=== PATIENT | male | born 1970 | race Caucasian/White ===

== ENCOUNTER 2020-05-06 17:45 | Inpatient (IN) | payer MEDICAID, OTHER ==
[~2020-05-06] VITALS: Ht 172.7 cm; Wt 86.4 kg
[~2020-05-06 17:45] MED LIST: AMLO10TA PO; ASPI-100 PO; ATOR20TA PO; CARV-50 PO; CHLO25TA2 PO; ERGO500014 PO; FAMO20TA8 PO; IBUP-2417 PO; LISI-600 PO; LORA10TA7 PO; NITR0.4T48 SL
[2020-05-06] MEDS ORDERED: LORazepam 2 mg/ml vial ONE (17:49)
[2020-05-06] MEDS ORDERED: heparin 10,000 units/1 ML INJ IV ONE ×2 (17:55→18:05)
[2020-05-06] MEDS ORDERED: heparin 25,000 UNIT/250ml bag 250 ML IV SCH ×2 (18:06→20:39)
[2020-05-06] MEDS ORDERED: LORazepam 2 mg/ml vial IV ONE (18:10)
[2020-05-06] MEDS ORDERED: morphine 4 MG/ML inj SYRINge IV ONE (18:10)
--- NOTE | 2020-05-06 18:11 | NUR ---
PT REPEAT EKG DONE READ BY DR AHUJA PER PROVIDER HE IS GOING TO ORDER METOPROL 5 MG IV ONCE.NOTIFIED PRIMARY NURSE YEYO LIMA.
[2020-05-06 18:14] LABS: D-DIMER 0.67 MG/L FEU (0-0.50); PARTIAL THROMBOPLASTIN TIME 27 SECONDS (22-32)
[2020-05-06] MEDS ORDERED: metoprolol tartrate 1mg/ml inj IV ONE ×2 (18:15)
[2020-05-06 18:17] LABS: ALANINE AMINOTRANSFERASE 47 U/L (12-78); ALBUMIN 4.3 G/DL (3.4-5.0); ALBUMIN/GLOBULIN RATIO 0.9 (1.1-1.5); ALKALINE PHOSPHATASE 137 IU/L (46-116); ASPARTATE AMINO TRANSFERASE 110 U/L (10-37); BILIRUBIN,TOTAL 2.7 MG/DL (0.1-1.0); BLOOD UREA NITROGEN 20 MG/DL (7-18); BUN/CREATININE RATIO 5.6 (5.4-32.0); CALCIUM 10.2 MG/DL (8.5-10.1); CHLORIDE 104 MMOL/L (99-107); CREATININE 3.54 MG/DL (0.60-1.10); ETHANOL < 0.010 GM/DL (0.0-0.010); GLUCOSE 157 MG/DL (70-104); MAGNESIUM 1.4 MG/DL (1.5-2.4); TOTAL CARBON DIOXIDE 17.9 MMOL/L (24-32); eGFR 18 ML/MIN
[2020-05-06] MEDS: heparin 25,000 UNIT/250ml bag 250 ML IV SCH (18:17)
[2020-05-06] MEDS ORDERED: metoprolol tartrate 1mg/ml inj IV SCH (18:25)
[2020-05-06 18:38] LABS: ANION GAP 23 (8-16); SODIUM 145 MMOL/L (135-145)
[2020-05-06 18:40] LABS: POTASSIUM 2.6 MMOL/L (3.5-5.1)
[2020-05-06 18:46] LABS: PLATELET COUNT 154 X10'3 (140-440)
[2020-05-06] MEDS ORDERED: normal saline 1000ML IV soln IVB ONE (18:50)
[2020-05-06 18:54] LABS: BASOPHILS # (AUTO) 0.1 X10'3 (0-0.2); BASOPHILS % (AUTO) 0.9 % (0-1); EOSINOPHILS % (AUTO) 0 % (0-6); HEMATOCRIT 55.4 % (42.0-52.0); LYMPHOCYTES # (AUTO) 1.1 X10'3 (1.1-4.8); LYMPHOCYTES % (AUTO) 11.1 % (21-51); MEAN CORPUSCULAR HEMOGLOBIN 36.8 PG (27.0-31.0); MEAN CORPUSCULAR HGB CONC 35.1 g/dL (33.0-36.5); MEAN CORPUSCULAR VOLUME 104.9 FL (78-98); MONOCYTES % (AUTO) 9.7 % (2-12); NEUTROPHILS % (AUTO) 78.3 % (42-75); RED BLOOD COUNT 5.28 X10'6 (4.70-6.10); RED CELL DISTRIBUTION WIDTH 14.1 % (11.5-14.5); WHITE BLOOD COUNT 10.3 X10'3 (4.5-11.0)
[2020-05-06 19:00] LABS: HEMOGLOBIN 19.4 g/dl (14.0-17.9)
[2020-05-06] MEDS ORDERED: potassium Cl 10 mEq/100mL bag IV ONE (19:10)
[2020-05-06] MEDS ORDERED: atorvastatin 20mg tablet PO STA (19:15)
[2020-05-06] MEDS ORDERED: magnesium 2GM in 50ml NS 50 ML IV ONE (19:20)
[2020-05-06] MEDS ORDERED: magnesium 4gm in 100ml NS 100 ML IV PRN (20:40)
[2020-05-06] MEDS ORDERED: potassium Cl 20 mEq SR tablet PO PRN (20:40)
[2020-05-06] MEDS ORDERED: thiamine inj. 100 MG in normal saline 100ml IV soln 100 ML IV ONE (20:40)
[2020-05-06] MEDS ORDERED: mag hydrox/Alum hydrox/simeth 30ml oral suspension PO PRN ×2 (20:40)
[2020-05-06] MEDS ORDERED: magnesium 2GM in 50ml NS 50 ML IV PRN (20:40)
[2020-05-06] MEDS ORDERED: magnesium hydroxide 30ml (MOM) UD suspension PO PRN (20:40)
[2020-05-06] MEDS ORDERED: ondansetron/PF 4mg/2ml inj IV PRN (20:40)
[2020-05-06] MEDS ORDERED: magnesium Cl slow-release 64mg tablet PO PRN (20:40)
[2020-05-06] MEDS ORDERED: haloperidol 5mg tablet PO PRN (20:40)
[2020-05-06] MEDS ORDERED: acetaminophen 325mg tablet PO PRN (20:40)
[2020-05-06] MEDS ORDERED: bisacodyl 10mg suppository rectal RC PRN (20:40)
[2020-05-06] MEDS ORDERED: morphine 2 MG/ML inj. syringe IV PRN (20:40)
[2020-05-06] MEDS ORDERED: haloperidol lactate 5mg/ml inj IM PRN (20:40)
[2020-05-06] MEDS ORDERED: HYDROcodone/acetaminophen 5mg/325mg tablet PO PRN (20:40)
[2020-05-06] MEDS ORDERED: potassium CL 10mEq/100ml bag 100 ML IV PRN (20:40)
[2020-05-06] MEDS ORDERED: heparin 10,000 units/1 ML INJ IV PRN (20:40)
[2020-05-06] MEDS ORDERED: pantoprazole 40 MG vial IV ONE (20:40)
[2020-05-06] MEDS ORDERED: dextrose ORAL solution 15 GM/59 ML bottle PO PRN ×2 (20:50)
[2020-05-06] MEDS ORDERED: insulin Lispro (HumaLOG) vial - multi-dose SQ SCH (20:50)
[2020-05-06] MEDS ORDERED: MESSAGE TO PHARMACY PO ONE (20:50)
[2020-05-06] MEDS ORDERED: dextrose 50%-water 50ml dispensing syringe IV PRN ×2 (20:50)
[2020-05-06] MEDS ORDERED: glucagon, human recombinant 1mg kit SUBCUT PRN (20:50)
[2020-05-06] MEDS ORDERED: nitroGLYCERIN 0.4mg SUBLingual tab SL PRN (21:10)
--- NOTE | 2020-05-06 21:28 | NUR ---
Patient in ER. I have received report from Cap RN and had the opportunity to ask questions.
[2020-05-06 21:44] LABS: URINE AMPHETAMINE SCREEN POSITIVE (Neg); URINE BARBITUATE SCREEN NEGATIVE (Neg); URINE BENZODIAZEPINES SCREEN NEGATIVE (Neg); URINE CANNABINOID SCREEN NEGATIVE (Neg); URINE COCAINE SCREEN NEGATIVE (Neg); URINE METHADONE SCREEN NEGATIVE (Neg); URINE OPIATE SCREEN POSITIVE (Neg); URINE PHENCYCLIDINE SCREEN NEGATIVE (Neg)
--- NOTE | 2020-05-06 21:45 | NUR ---
Patient arrived to unit. Transferred via gurney. Patient verbally aggressive with staff. MRSA sample collected. Vital signs Temp 98.6, RR 16, 158/102, HR 93, Pain 0 O2 98.
[2020-05-06 22:00] VITALS: BP 158/102
[2020-05-06] MEDS ORDERED: folic acid inj. 2 MG, thiamine inj. 100 MG, MVI, adult No.4 with vit. K 10 ML in dextro... IV SCH ×4 (22:00)
[2020-05-06] MEDS: insulin glargine (Lantus) pen - multi-dose SQ SCH (22:00)
[2020-05-06] MEDS: normal saline 1000ml 1,000 ML IV SCH (22:00)
--- NOTE | 2020-05-06 22:15 | NUR ---
Patient pulled out IV that was running heparin. Pulled off electrodes. Left room, redirected back to room.
[2020-05-06] MEDS: LORazepam 2 mg/ml vial IV PRN (22:23)
--- NOTE | 2020-05-06 23:00 | NUR ---
Patient pulled out IV that was just placed in the R AC.
--- NOTE | 2020-05-06 23:45 | NUR ---
Updated MD on patient and medications. MESSAGE: Re: Warren Pro rm [id number]. Patient pulling lines out, resistive to care. I have one line available running heparin. I'm not able to get his other medications in. Thanks! Nevin
--- NOTE | 2020-05-07 | NUR ---
Patient is confused, unable to dart.
[2020-05-07] MEDS: LORazepam 2 mg/ml vial IV PRN ×6 (00:35→21:08)
[2020-05-07 01:15] LABS: ALANINE AMINOTRANSFERASE 53 U/L (12-78); ALBUMIN/GLOBULIN RATIO 0.9 (1.1-1.5); ALKALINE PHOSPHATASE 127 IU/L (46-116); ANION GAP 15 (8-16); ASPARTATE AMINO TRANSFERASE 108 U/L (10-37); BILIRUBIN,TOTAL 1.8 MG/DL (0.1-1.0); BLOOD UREA NITROGEN 19 MG/DL (7-18); BUN/CREATININE RATIO 7.9 (5.4-32.0); CALCIUM 8.7 MG/DL (8.5-10.1); CHLORIDE 105 MMOL/L (99-107); CREATININE 2.41 MG/DL (0.60-1.10); GLUCOSE 107 MG/DL (70-104); MAGNESIUM 1.9 MG/DL (1.5-2.4); SODIUM 145 MMOL/L (135-145); TOTAL CARBON DIOXIDE 25.4 MMOL/L (24-32); TOTAL PROTEIN 8.6 G/DL (6.4-8.2); eGFR 29 ML/MIN
[2020-05-07 01:18] LABS: POTASSIUM 2.4 MMOL/L (3.5-5.1)
--- NOTE | 2020-05-07 01:23 | NUR ---
Notified Md of critical value K 2.4 MESSAGE: Re: Warren Pro. Rm [id number] critical value K 2.4, will start K replacement per protocol.
[2020-05-07 01:53] LABS: BASOPHILS % (AUTO) 0.3 % (0-1); EOSINOPHILS % (AUTO) 0.2 % (0-6); HEMATOCRIT 52.5 % (42.0-52.0); LYMPHOCYTES # (AUTO) 1.4 X10'3 (1.1-4.8); LYMPHOCYTES % (AUTO) 19.9 % (21-51); MEAN CORPUSCULAR HEMOGLOBIN 37.5 PG (27.0-31.0); MEAN CORPUSCULAR HGB CONC 35.1 g/dL (33.0-36.5); MEAN CORPUSCULAR VOLUME 106.6 FL (78-98); MEAN PLATELET VOLUME 9.2 FL (7.4-10.4); MONOCYTES # (AUTO) 0.7 X10'3 (0-0.9); MONOCYTES % (AUTO) 9.9 % (2-12); NEUTROPHILS # (AUTO) 4.9 X10'3 (1.8-7.7); NEUTROPHILS % (AUTO) 69.7 % (42-75); PLATELET COUNT 115 X10'3 (140-440); RED BLOOD COUNT 4.92 X10'6 (4.70-6.10)
[2020-05-07 01:57] LABS: HEMOGLOBIN 18.4 g/dl (14.0-17.9)
[2020-05-07 02:00] VITALS: BP 152/98
[2020-05-07] MEDS: potassium CL 10mEq/100ml bag 100 ML IV PRN ×8 (02:01→11:35)
--- NOTE | 2020-05-07 06:16 | NUR ---
Problems reprioritized. Patient report given, questions answered & plan of care reviewed with Nevin LIMA.
--- NOTE | 2020-05-07 06:18 | NUR ---
Patient in room PCU 3026. I have received report from Trina LIMA and had the opportunity to ask questions and assume patient care.
[2020-05-07 06:51] VITALS: BP 169/107
[2020-05-07] MEDS: normal saline 1000ml 1,000 ML IV SCH ×2 (07:00→16:51)
[2020-05-07] MEDS: docusate sod 100mg capsule PO SCH ×2 (07:06→19:14)
[2020-05-07] MEDS: carVEDilol 3.125mg tablet PO SCH ×2 (07:06→19:14)
[2020-05-07] MEDS: folic acid 1mg tablet PO SCH (07:06)
[2020-05-07] MEDS: atorvastatin 20mg tablet PO SCH (07:06)
[2020-05-07] MEDS: multivitamins, therapeutics tablet PO SCH (07:07)
[2020-05-07] MEDS: pantoprazole 40 MG vial IV SCH (07:07)
[2020-05-07] MEDS: thiamine 100mg tablet PO SCH (07:07)
[2020-05-07] MEDS: aspirin 81mg tab.chew PO SCH (07:07)
[2020-05-07] MEDS: K and/or MAG REPLACEMENT MC SCH ×2 (07:17→20:04)
[2020-05-07] MEDS ORDERED: thiamine 100mg tablet PO SCH (08:00)
[2020-05-07] MEDS ORDERED: folic acid 1mg tablet PO SCH (08:00)
[2020-05-07] MEDS ORDERED: nitroGLYCERIN 0.4mg SUBLingual tab SL PRN (10:20)
[2020-05-07] MEDS ORDERED: aminophylline 250mg/10ml inj. IV PRN (10:20)
[2020-05-07] MEDS ORDERED: metoprolol tartrate 1mg/ml inj IV PRN (10:20)
[2020-05-07] MEDS ORDERED: regadenoson 0.4mg/5ml syringe IV PRN (10:20)
[2020-05-07] MEDS: heparin 25,000 UNIT/250ml bag 250 ML IV SCH ×2 (10:31→16:48)
[2020-05-07 11:00] VITALS: BP 151/103
--- NOTE | 2020-05-07 12:33 | NUR ---
Unable to complete the patients admission assessment/DART due to the patient being confused. Will continue to monitor closely.
--- NOTE | 2020-05-07 13:06 | NUR ---
Patient left the unit with nuc med personnel. Addendum: 05/07/20 at 1352 by Ivana Brian RN Patient arrived back to unit from nuclear medicine, VSS
[2020-05-07 15:00] VITALS: BP 167/111
--- NOTE | 2020-05-07 17:12 | NUR ---
Sent a page to Dr Hugo joseph high blood pressure PAGER ID: [phone] MESSAGE: Nevin LIMA [phone] [id number] Karon Pro, BP 160s/110s, 6.25mg coreg given BID, can I have an order for prn hydralazine? thanks!
[2020-05-07] MEDS ORDERED: hydrALAZINE 20mg/ml inj. IV ONE (17:50)
[2020-05-07] MEDS ORDERED: hydrALAZINE 20mg/ml inj. IV PRN (17:50)
[2020-05-07 18:00] VITALS: BP 166/110
--- NOTE | 2020-05-07 18:00 | NUR ---
Patient in room PCU 3026. I have received report from Nevin LIMA and had the opportunity to ask questions and assume patient care.
--- NOTE | 2020-05-07 18:22 | NUR ---
Problems reprioritized. Patient report given, questions answered & plan of care reviewed with CLIFF LIMA.
[2020-05-07] MEDS: potassium Cl 20 mEq SR tablet PO PRN (20:05)
[2020-05-07] MEDS: insulin glargine (Lantus) pen - multi-dose SQ SCH (21:00)
[2020-05-07 22:00] VITALS: BP 148/91
[2020-05-08] VITALS (14 sets, daily range): BP systolic 118–167; BP diastolic 83–112
[2020-05-08] MEDS: potassium Cl 20 mEq SR tablet PO PRN ×4 (00:52→17:46)
[2020-05-08] MEDS: normal saline 1000ml 1,000 ML IV SCH ×2 (01:11→12:09)
[2020-05-08 05:24] LABS: ALANINE AMINOTRANSFERASE 38 U/L (12-78); ALBUMIN/GLOBULIN RATIO 0.8 (1.1-1.5); ALKALINE PHOSPHATASE 94 IU/L (46-116); ANION GAP 13 (8-16); ASPARTATE AMINO TRANSFERASE 86 U/L (10-37); BLOOD UREA NITROGEN 20 MG/DL (7-18); BUN/CREATININE RATIO 13.9 (5.4-32.0); CALCIUM 7.9 MG/DL (8.5-10.1); CHLORIDE 106 MMOL/L (99-107); CREATININE 1.44 MG/DL (0.60-1.10); GLUCOSE 120 MG/DL (70-104); MAGNESIUM 1.5 MG/DL (1.5-2.4); SODIUM 140 MMOL/L (135-145); TOTAL CARBON DIOXIDE 20.8 MMOL/L (24-32); TOTAL PROTEIN 6.6 G/DL (6.4-8.2); eGFR 52 ML/MIN
--- NOTE | 2020-05-08 05:50 | NUR ---
PAGER ID: [phone] MESSAGE: [id number] Warren Pro: Critical potassium 3.0, will continue with potassium protocol. Pauline LIMA [phone]
--- NOTE | 2020-05-08 06:26 | NUR ---
Problems reprioritized. Patient report given, questions answered & plan of care reviewed with Nevin LIMA.
--- NOTE | 2020-05-08 06:33 | NUR ---
Patient in room PCU 3026. I have received report from Pauline LIMA and had the opportunity to ask questions and assume patient care.
[2020-05-08] MEDS: multivitamins, therapeutics tablet PO SCH (07:12)
[2020-05-08] MEDS: atorvastatin 20mg tablet PO SCH (07:12)
[2020-05-08] MEDS: docusate sod 100mg capsule PO SCH ×2 (07:12→19:06)
[2020-05-08] MEDS: LORazepam 2 mg/ml vial IV PRN ×2 (07:13→15:53)
[2020-05-08] MEDS: aspirin 81mg tab.chew PO SCH (07:13)
[2020-05-08] MEDS: folic acid 1mg tablet PO SCH (07:13)
[2020-05-08] MEDS: pantoprazole 40 MG vial IV SCH (07:13)
[2020-05-08] MEDS: thiamine 100mg tablet PO SCH (07:13)
[2020-05-08] MEDS: carVEDilol 3.125mg tablet PO SCH ×2 (07:21→19:06)
[2020-05-08] MEDS: K and/or MAG REPLACEMENT MC SCH ×2 (07:21→19:06)
[2020-05-08 07:43] LABS: BASOPHILS % (AUTO) 0.5 % (0-1); EOSINOPHILS # (AUTO) 0.1 X10'3 (0-0.9); EOSINOPHILS % (AUTO) 2.9 % (0-6); HEMATOCRIT 43.1 % (42.0-52.0); HEMOGLOBIN 15.1 g/dl (14.0-17.9); LYMPHOCYTES # (AUTO) 0.9 X10'3 (1.1-4.8); LYMPHOCYTES % (AUTO) 24.1 % (21-51); MEAN CORPUSCULAR HGB CONC 34.9 g/dL (33.0-36.5); MEAN PLATELET VOLUME 9.6 FL (7.4-10.4); MONOCYTES # (AUTO) 0.3 X10'3 (0-0.9); MONOCYTES % (AUTO) 8.3 % (2-12); NEUTROPHILS # (AUTO) 2.5 X10'3 (1.8-7.7); NEUTROPHILS % (AUTO) 64.2 % (42-75); PLATELET COUNT 98 X10'3 (140-440); RED BLOOD COUNT 4.07 X10'6 (4.70-6.10); RED CELL DISTRIBUTION WIDTH 13.9 % (11.5-14.5); WHITE BLOOD COUNT 3.9 X10'3 (4.5-11.0)
--- NOTE | 2020-05-08 17:58 | NUR ---
Spoke with Dr Lemon via telephone, was asked to ask the patient if he would want to stay another day, patient wants to leave [facility], Dr Lemon aware.
--- NOTE | 2020-05-08 18:13 | NUR ---
Stable for discharge per MD order, all discharge instructions reviewed with patient and all questions answered, no new prescriptions ordered, PIV and tele monitor discontinued
--- NOTE | 2020-05-08 18:14 | NUR ---
Problems reprioritized. Patient report given, questions answered & plan of care reviewed with Pauline LIMA.
--- NOTE | 2020-05-08 19:43 | NUR ---
Problems reprioritized. Patient report given, questions answered & plan of care reviewed with Nevin LIMA. Patient fully discharged at 1940 and Coreg evening dose was given before discharged.
[2020-05-09] MEDS ORDERED: pantoprazole 40mg Tablet.DR PO SCH (07:30)
== END 2020-05-08 19:38 | disposition home or self-care (01) | DRG 313 ==
LOC: ER 17:45 → ED HOLD 20:39 → PCU 3S 21:30
PROVIDERS: ADMIT Family Medicine; ATTEND Family Medicine
PROC: CB121ZZ Planar Nuclear Medicine Imaging of Lungs and Bronchi using Technetium 99m (Tc-99m) (ICD-10-PCS; 2020-05-07)
PROC: 4A02XM4 Measurement of Cardiac Total Activity, External Approach (ICD-10-PCS; principal; 2020-05-08)
PROC: 3E073KZ Introduction of Other Diagnostic Substance into Coronary Artery, Percutaneous Approach (ICD-10-PCS; 2020-05-08)
DX: R07.89 Other chest pain (principal); E11.9 Type 2 diabetes mellitus without complications; E87.6 Hypokalemia; F10.20 Alcohol dependence, uncomplicated; F12.90 Cannabis use, unspecified, uncomplicated; I11.0 Hypertensive heart disease with heart failure; I50.9 Heart failure, unspecified; F15.10 Other stimulant abuse, uncomplicated; F17.200 Nicotine dependence, unspecified, uncomplicated; F41.9 Anxiety disorder, unspecified; I25.10 Atherosclerotic heart disease of native coronary artery without angina pectoris; J44.9 Chronic obstructive pulmonary disease, unspecified; N28.9 Disorder of kidney and ureter, unspecified; Z91.14 Patient's other noncompliance with medication regimen; Z90.49 Acquired absence of other specified parts of digestive tract; I25.2 Old myocardial infarction; Z71.6 Tobacco abuse counseling
CPT/HCPCS: 36415; 71045; 78452; 78582; 80053; 80305; 80320; 82948; 83036; 83735; 84132; 84484; 85025; 85379; 85610; 85730; 87081; 93005; 93017; 93306; 96361; 96365; 96375; 99285; A9500; A9539; A9540; C9113; G0378; J0280; J0360; J1644; J1815; J2060; J2270; J2785; J3475; J3480; J3490; J7030